=== PATIENT | male | born 1960 | race Caucasian/White ===

== ENCOUNTER → 2018-10-15 | Outpatient (CLI) | payer OTHER | LOC: FIMAGING 13:19 | PROVIDERS: ATTEND Orthopaedic Surgery | DX: M16.11 Unilateral primary osteoarthritis, right hip (principal) ==

== ENCOUNTER 2018-10-25 09:05 | Inpatient (IN) | payer OTHER ==
[~2018-10-25 09:05] MED LIST: POVIDONE-IODINE 20 ML in SODIUM CL IRRIG SOLUTION 500 ML IRR ONE; ROPIVACAINE 0.2% 80 MG, EPINEPHrine 0.2 MG, KETOROLAC TROMETHAMINE 30 MG in SYRINGE 0 ML IU ONE; TRANEXAMIC ACID 1,000 MG in NS 100 ML IV ONE; VANCOMYCIN 1.25 GM in NS 250 ML IV ONE; VANCOMYCIN PHARMACY TO DOSE MISC ONE
[2018-10-25] MEDS ORDERED: FAMOTIDINE 20 MG TAB PO ONE (09:16)
[2018-10-25] MEDS ORDERED: ACETAMINOPHEN 325 MG TAB PO ONE (09:16)
[2018-10-25] MEDS ORDERED: DEXAMETHASONE 4 MG/ML VIAL IVP ONE (09:16)
[2018-10-25] MEDS ORDERED: LR 1,000 ML IV ONE (09:17)
[2018-10-25] MEDS ORDERED: BUPIVACAINE/EPI 0.5% 30 ML SDV ONE (09:58)
--- NOTE | 2018-10-25 10:44 | PDHPUP ---
History & Physical Update H&P update statement: This history and physical update is based on an assessment of the patient which was completed after admission or registration (within 24 hours), but prior to the surgery/procedure. H&P update: H&P reviewed & patient examined, no change in patient's condition since H&P completed
[2018-10-25] MEDS ORDERED: MIDAZOLAM 2 MG/2 ML VIAL ONE (10:48)
[2018-10-25] MEDS ORDERED: MIDAZOLAM 2 MG/2 ML VIAL IVP ONE (10:54)
--- NOTE | 2018-10-25 10:54 | PDANEPAE ---
ANE Past Medical History - Cardiovascular History Hx Hypertension: Yes Hx Arrhythmias: No Hx Chest Pain: No Hx Coronary Artery / Peripheral Vascular Disease: No Hx CHF / Valvular Disease: No Hx Palpitations: No - Pulmonary History Hx COPD: No Hx Asthma/Reactive Airway Disease: No Hx Recent Upper Respiratory Infection: No Hx Oxygen in Use at Home: No Hx Sleep Apnea: No Sleep Apnea Screening Result - Last Documented: Negative - Neurologic History Hx Cerebrovascular Accident: No Hx Seizures: No Hx Dementia: No - Endocrine History Hx Diabetes: No Hypothyroid: No Hyperthyroid: No Obesity: no - Renal History Hx Renal Disorders: No - Liver History Hx Hepatic Disorders: No - Neurological & Psychiatric Hx Hx Neurological and Psychiatric Disorders: No - Cancer History Hx Cancer: No - Congenital Disorder History Hx Congenital Disorders: No - GI History GERD: moderate Hx Gastrointestinal Disorders: Yes Gastrointestinal History Comment: ACID REFLUX - Other Health History Other Health History: NEG - Chronic Pain History Chronic Pain: Yes (R HIP AND R KNEE) - Surgical History Prior Surgeries: HERNIA REPAIR. LABRAL TEAR R SHOULDER ANE Review of Systems Review of Systems: - Exercise capacity Exercise capacity: >=4 METS, limited by disability METS (RN): 4 METS ANE Patient History - Allergies Allergies/Adverse Reactions: naproxen [From Aleve] Allergy (Verified 10/09/18 11:19) Hives Penicillins Allergy (Verified 10/09/18 11:19) Hives pseudoephedrine [From Sudafed] Allergy (Verified 10/25/18 09:35) - Home Medications Home Medications: Ascorbic Acid [Vitamin C 500 mg (*)] 500 mg PO BID 10/12/18 [Last Taken 2 Weeks Ago ~10/11/18] Atorvastatin Calcium [Lipitor 20 mg (*)] 20 mg PO HS 10/12/18 [Last Taken 07:00] Cetirizine [ZyrTEC 10 mg (*)] 10 mg PO BID 10/12/18 [Last Taken 3 Days Ago ~] Cholecalciferol Vit D3 [Vitamin D3 (*)] 1,000 units PO BID 10/12/18 [Last Taken 1 Week Ago ~10/18/18] Cyanocobalamin [Vitamin B12 (*)] 1,000 mcg PO DAILY 10/12/18 [Last Taken 1 Week Ago ~10/18/18] Omeprazole 20 mg PO DAILY 10/12/18 [Last Taken 10/25/18 07:00] Valsartan/Hydrochlorothiazide [Valsartan-Hctz 160-12.5 mg Tab] 1 each PO DAILY 10/12/18 [Last Taken 10/24/18] Vitamin B Complex [Vitamin B Complex (OTC)] 1 each PO DAILY 10/12/18 [Last Taken 1 Week Ago ~10/18/18] amLODIPine BESYLATE [Norvasc 5 mg (*)] 5 mg PO DAILY 10/12/18 [Last Taken 07:00] buPROPion XL [Wellbutrin Xl] 150 mg PO DAILY 10/12/18 [Last Taken 10/25/18 07:00 ] guaiFENesin [Guaifenesin] 400 mg PO BID 10/12/18 [Last Taken 10/25/18 07:00] celeCOXIB [Celebrex (*)] 200 mg PO DAILY 10/16/18 [Last Taken 10/25/18 07:00] traMADol [Ultram 50 mg (*)] 50 mg PO Q4 PRN 10/16/18 [Last Taken 2 Days Ago ~] - NPO status NPO Since - Liquids (Date): 10/25/18 NPO Since - Liquids (Time): 07:00 NPO Since - Solids (Date): 10/24/18 NPO Since - Solids (Time): 22:00 - Anes Hx Anes Hx: no prior problems - Smoking Hx Smoking Status: Former smoker - Alcohol Use Alcohol Use: Occasionally - Family Anes Hx Family Anes Hx: neg - N/A ANE Labs/Vital Signs - Vital Signs Blood Pressure: 126/93 Heart Rate: 75 Respiratory Rate: 16 O2 Sat (%): 98 Height: 170.18 cm Weight: 81.647 kg ANE Physical Exam - Airway Neck exam: FROM Mallampati Score: Class 2 Mouth exam: normal dental/mouth exam - Pulmonary Pulmonary: no respiratory distress, no rales or rhonchi, clear to auscultation - Cardiovascular Cardiovascular: regular rate and rhythym - ASA Status ASA Status: II ANE Anesthesia Plan Anesthesia Plan: GA w LMA, spinal Total IV Anesthesia: No
[2018-10-25] MEDS ORDERED: fentaNYL 100 MCG/2 ML INJ ONE ×2 (11:00→14:42)
[2018-10-25] MEDS ORDERED: PROPOFOL/EMULSION 500 MG/50 ML BOTTLE IV ONE ×2 (11:13→11:47)
[2018-10-25] MEDS ORDERED: PHENYLEPHRINE HCL 100 MCG/ML SYR ONE (11:42)
[2018-10-25] MEDS ORDERED: ONDANSETRON 4 MG/2 ML VIAL IVP PRN ×2 (11:44→13:30)
[2018-10-25] MEDS ORDERED: MEPERIDINE 25 MG/0.5 ML AMP IVP PRN (11:44)
[2018-10-25] MEDS ORDERED: ACETAMINOPHEN 500 MG TAB PO PRN (11:44)
[2018-10-25] MEDS ORDERED: PHENYLEPHRINE HCL 100 MCG/ML SYR IVP PRN (11:44)
[2018-10-25] MEDS ORDERED: PROMETHAZINE HCL 25 MG/ML INJ IVP PRN ×2 (11:44→13:30)
[2018-10-25] MEDS ORDERED: HYDROCODONE/APAP 5/325 TAB PO PRN (11:44)
[2018-10-25] MEDS ORDERED: LR 500 ML IV PRN (11:44)
[2018-10-25] MEDS ORDERED: NALOXONE HCL 0.4 MG/ML INJ IVP PRN (11:44)
[2018-10-25] MEDS ORDERED: oxyCODONE IR 5 MG TAB PO PRN (11:44)
[2018-10-25] MEDS ORDERED: fentaNYL 100 MCG/2 ML INJ IVP PRN (11:44)
[2018-10-25] MEDS ORDERED: BUPIVACAINE/DEXTROSE 7.5MG/ML 2 ML SPINAL AMP SP ONE (11:47)
[2018-10-25] MEDS ORDERED: TEMAZEPAM 15 MG CAP PO PRN (13:30)
[2018-10-25] MEDS ORDERED: CYCLOBENZAPRINE 10 MG TAB PO PRN (13:30)
[2018-10-25] MEDS ORDERED: POLYETHYLENE GLYCOL 3350 17 GM PKT PO PRN (13:30)
[2018-10-25] MEDS ORDERED: LACTULOSE 20 GM/30 ML UDCUP PO PRN (13:30)
[2018-10-25] MEDS ORDERED: DIPHENOXYLATE/ATROPINE LOMOTIL 1 TAB PO PRN (13:30)
[2018-10-25] MEDS ORDERED: METOCLOPRAMIDE 10 MG/2 ML VIAL IVP PRN (13:30)
[2018-10-25] MEDS ORDERED: PROMETHAZINE HCL 25 MG SUPPR PR PRN (13:30)
[2018-10-25] MEDS ORDERED: BISACODYL 10 MG SUPP PR PRN (13:30)
[2018-10-25] MEDS ORDERED: MAGNESIUM HYDROXIDE 30 ML UDCUP PO PRN (13:30)
[2018-10-25] MEDS ORDERED: LR 1,000 ML IV SCH (13:30)
[2018-10-25] MEDS ORDERED: ONDANSETRON DISINTEGRATING 4 MG TAB PO PRN (13:30)
[2018-10-25] MEDS ORDERED: diphenhydrAMINE 25 MG CAP PO PRN (13:30)
--- NOTE | 2018-10-25 14:35 | GOP ---
[f rep st] OPERATIVE REPORT DATE OF OPERATION: 10/25/2018 SURGEON: Alberto Ramesh MD HYDRAULIC BILLET MAKER: Elias Whitaker, CSFA, LSA. Rubber Mixer was required for the procedure due to complexity of the case and patient's condition for positioning, prepping, draping, retraction, and closure. ANESTHESIA: Spinal IV sedation. PREOPERATIVE DIAGNOSIS: Right hip osteoarthritis. POSTOPERATIVE DIAGNOSIS: Right hip osteoarthritis. PROCEDURE PERFORMED: Right hip anterior approach hip replacement MAKOplasty robotic guidance, fluoro scopic supervision greater than 1 hour. FINDINGS: SPECIMENS: Femoral head x1. ESTIMATED BLOOD LOSS: 300 cc. INDICATIONS: The patient has severe hip osteoarthritis that failed to improve with conservative carlito ures, significantly affecting activities of daily living including walking. The patient elected to p roceed with anterior approach hip replacement using MAKOplasty robotic guidance after extensive discu ssion of all possible approaches, as well as risks, benefits, pros, cons, expected recovery, and prog nosis. The patient verbalized understanding of the risks and benefits of the procedure and signed in formed consent prior to the procedure. DESCRIPTION OF PROCEDURE: The patient is seen in the holding area and operative consent and extremit y were signed. The patient was taken to the operating room, after smooth induction of spinal anesthe penny and sedation, the patient was placed in supine position on the operating table with the arch tabl e extension. The hip and contralateral iliac crest were prepped and draped in usual sterile fashion. Operative site was confirmed by signature. Operative time-out performed. Allergies reviewed. Ant ibiotics and TXA were administered. Three pins were placed in contralateral iliac crest. Pelvic array was fixed, it was well visualized by the robot. The desired incision for the anterior approach of the hip was infiltrated with 0.25% M arcaine with epinephrine. The incision was made with a 10 blade, carried through subcutaneous tissue to identify the TFL fascia this was incised in line with the incision and the TFL was retracted late rally. Lateral femoral circumflex vessels were coagulated with Aquamantys. The deep TFL fascia was incised and the vastus lateralis was clearly exposed, pre-capsular fat was excised. A T-shaped capsu lotomy was performed, the capsule was preserved for later closure. The femoral neck cut was then performed based on pre-templated calculations and imaging, the femoral head was excised with a corkscrew. The acetabulum was exposed in standard fashion, labrum pulvinar, soft tissue were excised sharply. Pelvic checkpoint was placed in the AIIS. Acetabular registration was performed using the robot. Reaming was then performed using the robot to the desired size. The cup was impacted into place, again with robotic guidance system. Good fixation was achieved. The c up was irrigated and dried, and the liner was impacted into place achieving good locking within the c up. The femur was then exposed in standard fashion. The femur was broached to desired size. Trial neck and head were attached, and the hip was relocated. Component position of all components was confirme d fluoroscopically. The foot was externally rotated 90 degrees, extended to the floor, and stability was confirmed. The hip was then dislocated, and the femoral trial components were removed. The herrera m was impacted into place. The trunnion was cleaned and dried, and the head was impacted down on the trunnion. The wound was copiously irrigated including the cup with pulse lavage, and the hip was on ce again relocated. Component placement was confirmed with fluoroscopy. All checkpoints were removed, the pelvic array was also removed. The wound was copiously irrigated w ith sterile solution, dilute Betadine solution was then irrigated into the wound and allowed to soak for 3 minutes before being irrigated out. Joint cocktail was injected in the soft tissue capsule, an d indirect head of the rectus femoris was repaired with #1 Vicryl sutures. The drain was placed exit ing distally and laterally from deep to TFL. The wound was then closed in layers with 0 Quill in the TFL fascia and deep subcutaneous fat, 3-0 Versalok in the dermis. The wound was dressed with steril e dressing. The patient was safely awakened and taken to recovery room in stable condition. All critical portions of the case performed by myself, Dr. Ramesh. This operative note was created by myself, and I was immediately available for emergency cross-coverage at all times. DRAINS: Hemovac x1. COMPLICATIONS: None. IMPLANTS: Includes a [place] Trident 2 Tritanium cluster hole acetabular shell size 54 mm with a 0-d egree, 36 mm polyethylene liner. Karen Accolade 2, size 6 stem 127 degree offset with a 36 mm -5 m m head. /[id number]/MODL
--- NOTE | 2018-10-25 14:41 | PDMN ---
Medical Necessity Medical necessity: [facility] [place] S560 hip arthroplasty INPT only OP: R hip anterior approach hip replacement makoplasty robotic guidance, flouroscopic supervision > 1 hr.
[2018-10-25] MEDS ORDERED: oxyCODONE IR 5 MG TAB ONE (14:48)
[2018-10-25] MEDS: oxyCODONE IR 5 MG TAB PO PRN ×3 (14:49→21:35)
--- NOTE | 2018-10-25 15:05 | POSTANESTH ---
Post Anesthetic Evaluation Cardiovascular Status: Normal, Stable Respiratory Status: Normal, Stable Level of Consciousness/Mental Status: Can Participate in Eval Pain Control: Adequate, Prn Tx Ordered Nausea/Vomiting Control: Adequate, Prn Tx Ordered Complications Possibly Related to Anesthesia: None Noted
[2018-10-25] MEDS: guaiFENesin 200 MG TAB PO SCH (20:01)
[2018-10-25] MEDS: DIAZEPAM 5 MG TAB PO PRN (20:02)
[2018-10-25] MEDS: FAMOTIDINE 20 MG TAB PO SCH (20:02)
[2018-10-25] MEDS: CHOLECALCIFEROL VIT D3 1,000 UNITS TAB PO SCH (20:02)
[2018-10-25] MEDS: ASCORBIC ACID 500 MG TAB PO SCH (20:03)
[2018-10-25] MEDS: CETIRIZINE 10 MG TAB PO SCH (20:03)
[2018-10-25] MEDS: SENNOSIDES/DOCUSATE SODIUM TAB PO SCH (20:04)
[2018-10-25] MEDS: ASPIRIN 81 MG CHEWABLE TAB PO SCH (20:04)
[2018-10-25] MEDS: ACETAMINOPHEN 325 MG TAB PO SCH (20:05)
[2018-10-25] MEDS ORDERED: ATORVASTATIN CALCIUM 20 MG TAB PO SCH (21:00)
[2018-10-25] MEDS ORDERED: VANCOMYCIN HCL/NORMAL SALINE 250 ML IV ONE (22:00)
[2018-10-26] MEDS: ACETAMINOPHEN 325 MG TAB PO SCH ×2 (00:35→08:14)
[2018-10-26] MEDS: oxyCODONE IR 5 MG TAB PO PRN ×3 (04:19→11:56)
[2018-10-26] MEDS: DIAZEPAM 5 MG TAB PO PRN ×2 (04:20→11:56)
[2018-10-26 07:17] VITALS: BP 115/72
--- NOTE | 2018-10-26 07:29 | SOAPPROG ---
SOAP Progress Note Assessment/Plan: Assessment: Postop day 1 status post right anterior total hip arthroplasty with Bradley Plan: Weightbear as tolerated, PT/OT DVT prophylaxis: SCDs, Oj Hose, aspirin 81 mg twice daily x3 weeks Incentive spirometry 10 times per hour Analgesics: Percocet, Valium, Celebrex Disposition: Home this afternoon after physical therapy 10/26/18 07:25 Subjective: Some difficulty with pain control. Requiring multimodal treatments including IV morphine. Feels as though Valium is helping significantly. Denies fevers chills nausea vomiting chest pain shortness of breath. Mild numbness over the right lateral thigh Objective: Vital Signs Temp Pulse Resp BP Pulse Ox 36.9 C 70 16 115/72 95 10/26/18 07:16 10/26/18 07:16 10/26/18 07:16 10/26/18 07:16 10/26/18 07:16 Laboratory Results 10/26/18 04:15 10/25/18 15:22 10/25/18 10/26/18 10/27/18 05:59 05:59 05:59 Intake Total 1600 Output Total 2310 Balance -710 Awake alert and oriented Easy nonlabored breathing Right hip: Dressing clean dry intact no erythema drainage or signs of infection Drain discontinued Thigh and calf compartments soft and compressible Sensation intact to light touch L3-S1 Motor intact EHL FHL tibialis anterior gastrocsoleus Palpable DP PT pulses - Pending Discharge Pending Discharge Within 24 Hours: Yes Pending Discharge Date: 10/26/18 Pending Discharge Time: 11:00 ICD10 Worksheet Patient Problems: Problems Problem Status Onset Osteoarthritis of right hip Acute
--- NOTE | 2018-10-26 07:44 | PDIAF ---
- Diagnosis Code Status: Full Code - Medication Management Discharge Medications: electronically signed and located in the Home Medication List. - Orders Services needed: Physical Therapy Diet Recommendation: no restrictions on diet Diet Texture: Regular Texture Diet Wound Care Instructions: Keep Mepilex dressings CDI until f/u in 2wks Activity/Weight Bearing Restrictions: WBAT Additional Instructions: WBAT see handout - Follow Up Care Current Providers and Referrals: Alberto Ramesh MD [Medical Doctor] - follow up in 2 weeks NONE *PRIMARY CARE P,. [Primary Care Provider] -
[2018-10-26] MEDS: ASPIRIN 81 MG CHEWABLE TAB PO SCH (08:14)
[2018-10-26] MEDS: CHOLECALCIFEROL VIT D3 1,000 UNITS TAB PO SCH (08:14)
[2018-10-26] MEDS: ASCORBIC ACID 500 MG TAB PO SCH (08:15)
[2018-10-26] MEDS: CETIRIZINE 10 MG TAB PO SCH (08:15)
[2018-10-26] MEDS: SENNOSIDES/DOCUSATE SODIUM TAB PO SCH (08:15)
[2018-10-26] MEDS: FAMOTIDINE 20 MG TAB PO SCH (08:15)
[2018-10-26] MEDS ORDERED: amLODIPine BESYLATE 5 MG TAB PO SCH (09:00)
[2018-10-26] MEDS ORDERED: VALSARTAN/HCTZ 80-12.5MG TAB PO SCH (09:00)
[2018-10-26] MEDS ORDERED: buPROPion XL 150 MG TAB PO SCH (09:00)
[2018-10-26] MEDS ORDERED: CYANO/VITAMIN B12 1000 MCG TAB PO SCH (09:00)
[2018-10-26] MEDS ORDERED: VITAMIN B COMPLEX 1 EA CAP/TAB PO SCH (09:00)
[2018-10-26] MEDS ORDERED: VALSARTAN 80 MG TAB PO SCH (09:00)
[2018-10-26] MEDS: guaiFENesin 200 MG TAB PO SCH (11:58)
--- NOTE | 2018-10-29 05:24 | GDS ---
[f rep st] DISCHARGE SUMMARY ADMITTING DIAGNOSIS: Right hip osteoarthritis. DISCHARGE DIAGNOSIS: Right hip osteoarthritis. PROCEDURE PERFORMED: Right hip anterior approach total hip replacement using MAKOplasty robotic allen perez. HOSPITAL COURSE: Patient was admitted on the above date and underwent the above procedure without co mplication. He tolerated it well. Pain was well controlled postoperatively. He was administered an tibiotic and DVT prophylaxis. He participated in cleared physical therapy on postop day 1 and was cl eared for discharge home. CONDITION UPON DISCHARGE: Stable. POSTOPERATIVE INSTRUCTIONS: Weightbearing as tolerated. Aspirin 81 twice daily x3 weeks for DVT pro phylaxis. Follow up in 2 weeks. /[id number]/MODL
== END 2018-10-26 12:47 | disposition home health service (06) | DRG 470 ==
LOC: F3N 09:05 → OBSVTOIN 09:05 → EDSTATUS 10:00 → F3N 15:05
PROVIDERS: ADMIT Orthopaedic Surgery; ATTEND Orthopaedic Surgery
DX: M16.11 Unilateral primary osteoarthritis, right hip (principal); I10 Essential (primary) hypertension; K21.9 Gastro-esophageal reflux disease without esophagitis; F32.9 Major depressive disorder, single episode, unspecified; E78.00 Pure hypercholesterolemia, unspecified; G43.909 Migraine, unspecified, not intractable, without status migrainosus; K75.9 Inflammatory liver disease, unspecified; Z87.891 Personal history of nicotine dependence
CPT/HCPCS: 97116-GP; 97161-GP; 97165-GO; J0171; J1100; J1885; J2250; J2270; J2370; J2704; J2795; J3010; J3370